=== PATIENT | male | born 2000 | race Caucasian/White ===

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

== ENCOUNTER 2021-06-08 15:35 | Emergency (ER) | payer MEDICAID, SELFPAY ==
[2021-06-08 15:37] VITALS: BP 176/100; PULSE 66; RESP 16; TEMP 37.2; O2SAT 99
[2021-06-08] MEDS: Fluorescein STRIPS 100/BOX 1 MG (16:09)
[2021-06-08] MEDS: Tetracaine 0.5% 4 ML BTL (16:09)
--- NOTE | 2021-06-08 16:14 | ED.GENADUL_ITS ---
Discharge Plan Disposition Patient Disposition: HOME Condition: Improving Discharge Details Clinical Impression: Foreign body in cornea, left eye, initial encounter Primary Care Provider: Wilmer Sherman ED Provider: Sarabjit Dewey Home Meds and New Rx's Prescriptions: No Action No Known Home Meds 0RF Discharge Instructions Additional Instructions: Please go directly to [facility] eye care for further evaluation of your left eye corneal foreign body. You have been discharged with erythromycin ointment. Please hold this medicine until further directions per the optometry personnel. Medical Decision Making 20-year-old male presents with foreign body sensation that developed last night after work. No change to vision, he is otherwise been well. He has a foreign body located above the axis of vision a 12 position of the left eye. I was unable to remove with sweeping with a cotton swab and with a 30-gauge beveled needle. Local optometry office was contacted, and patient referred for urgent evaluation for foreign body removal. HPI General Mode of arrival: ambulatory . Date/Time Provider Initiated Documentation: 06/08/21 15:44 . Limitations to Documentation: no limitations . Information obtained by: patient . History of Present Illness 20 year old M presents to the emergency department with the chief complaint of Left eye irritation, pain, described as moderate, Quality is described as dull and constant, and is localized to the eyes and left. Patient reports no radiation. Patient started experiencing this hour(s) and it has been constant. improves with No relieving factors improve symptom(s), Other factors that worsen symptoms (Bright light) . Patient notes denies headaches. Patient did receive the following treatments prior to arrival, none Related Data Home Medications Medication Instructions Recorded Confirmed Unknown [No Known Home Meds] 09/16/19 06/08/21 Allergies Allergy/AdvReac Type Severity Reaction Status Date / Time No Known Allergies Allergy Unverified 06/08/21 15:41 General Stated Complaint: EyeProblem PORFIRIO: 4 Review of Systems Narrative: 6 systems reviewed and otherwise negative PFSH All Active Problems (Updated 06/08/21 @ 16:27 by Sarabjit Dewey MD) Foreign body in cornea, left eye, initial encounter (Acute) Medical History No active medical problems Social History Smoking/Tobacco Use Status: Never Smoking risk assessment performed?: Yes Alcohol Intake: never Drug use: Never Substance use type: does not use Do you feel safe at home: Yes Do you feel safe in your relationship?: Yes Exam Narrative Exam Narrative: GEN: awake, alert, oriented 3. Pleasant, well groomed, interactive. HEAD: Normocephalic, atraumatic ENT: Mucous membranes moist, oropharynx unremarkable, External ear exam unremarkable EYES: PERRL, EOMI, left conjunctival injection. Foreign body is present left eye superior to the axis of vision in the 12 o'clock position. Negative Karishma sign. NECK: Full ROM, no JOSE, no menigismus CHEST/RESP: No respiratory distress Neuro: Grossly normal neurologic exam, conversant, interactive. Psych: Speech fluent, thoughts congruent, affect normal Course Vital Signs Vital signs: Vital Signs Temperature 37.2 C 06/08/21 15:37 Pulse 66 06/08/21 15:37 Respiratory Rate 16 06/08/21 15:37 Blood Pressure 176/100 H 06/08/21 15:37 Pulse Oximetry 99 06/08/21 15:37 Temperature 37.2 C 06/08/21 15:37 Temperature Source Temporal Artery Scan 06/08/21 15:37 Pulse 66 06/08/21 15:37 Respiratory Rate 16 06/08/21 15:37 Respiratory Effort Non-Labored 06/08/21 15:40 Blood Pressure 176/100 H 06/08/21 15:37 Blood Pressure Position Sitting 06/08/21 15:37 Pulse Oximetry 99 06/08/21 15:37 Oxygen Delivery Method Room Air 06/08/21 15:37 Oxygen Flow Rate 0 06/08/21 15:37 Pain Level 5 06/08/21 15:37
[2021-06-08] MEDS: Erythromycin Ophth Oint 3.5 GM TUBE OP (16:34)
[2021-06-08] MEDS: Fluorescein STRIPS 100/BOX 1 MG OP (16:35)
== END 2021-06-08 16:33 | disposition home or self-care (01) ==
PROVIDERS: Emergency Provider Emergency Medicine; PCP Family Medicine
DX: T15.02XA Foreign body in cornea, left eye, initial encounter (principal); X58.XXXA Exposure to other specified factors, initial encounter
CPT/HCPCS: 99283

== ENCOUNTER 2021-08-30 18:16 | Emergency (ER) | payer MEDICAID, SELFPAY ==
[2021-08-30 18:44] VITALS: BP 147/90; PULSE 70; RESP 18; TEMP 37.2
--- NOTE | 2021-08-30 18:59 | PDOC.ERCMPRO ---
- If Service Date Differs Date of service: 08/30/21 Time of Service: 18:59 Care Management Progress Note Pt screened negative for substance use and mental health disorders. Pt notes he recently quit tobacco and was affirmed for positive choices.
[2021-08-30 19:18] VITALS: RESP 14
[2021-08-30 19:26] VITALS: BP 141/94; PULSE 79; RESP 14; TEMP 36.4; O2SAT 97
--- NOTE | 2021-08-30 19:30 | DI.RAD_ITS ---
Exam(s) XR TIB/FIB RT EXAM: XR TIB/FIB RT CLINICAL HISTORY: Jumped off a bridge,pain. TECHNIQUE: 2D digital imaging was performed. COMPARISON: No exams were available for comparison FINDINGS: Two views: No evidence of fracture. No radiopaque foreign body. No osseous lesions. IMPRESSION: No fracture. DATA REPOSITORY: RADIATION DOSE DELIVERED:
--- NOTE | 2021-08-30 19:30 | DI.RAD_ITS ---
Exam(s) XR TIB/FIB LT EXAM: XR TIB/FIB LT CLINICAL HISTORY: Jumped off a bridge,pain. TECHNIQUE: 2D digital imaging was performed. COMPARISON: CR,XR XR TIB/FIB RT from 08/30/2021 FINDINGS: Two views No fracture nor dislocation. Bone density normal. No osseous lesions. IMPRESSION: No significant osseous findings DATA REPOSITORY: RADIATION DOSE DELIVERED:
--- NOTE | 2021-08-30 19:30 | DI.RAD_ITS ---
Exam(s) XR KNEE LT 4V+ EXAM: XR KNEE LT 4V+ CLINICAL HISTORY: Jumped off a bridge,pain. TECHNIQUE: 2D digital imaging was performed. COMPARISON: No exams were available for comparison FINDINGS: Four views: There is no evidence of fracture nor prominent joint effusion. There is a mild amount of increased j oint fluid. No degenerative changes. Incidentally noted is an eccentric benign-appearing bone lesion in the distal femoral metaphysis. Th is is probably a benign fibrous cortical defect-nonossifying fibroma. IMPRESSION: No acute osseous findings. 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 DATA REPOSITORY: RADIATION DOSE DELIVERED:
--- NOTE | 2021-08-30 19:30 | DI.RAD_ITS ---
Exam(s) XR ANKLE RT COMPLETE EXAM: XR ANKLE RT COMPLETE CLINICAL HISTORY: Jumped off a bridge,pain. TECHNIQUE: 2D digital imaging was performed. COMPARISON: No exams were available for comparison FINDINGS: 3 views There is soft tissue swelling but no fracture or widening of the ankle mortise. Talar dome unremarka ble. Bone density normal. No osseous lesions IMPRESSION: No fracture. DATA REPOSITORY: RADIATION DOSE DELIVERED:
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
--- NOTE | 2021-08-30 21:18 | DI.VRAD_ITS ---
PROCEDURE INFORMATION: Exam: XR Right Calcaneus Exam date and time: 08/30/2021 8:34 PM Age: 20 years old Clinical indication: Injury or trauma; Other: Jumped off bridge; Blunt trauma; Heel; Right; Injury date: 08/30/21 TECHNIQUE: Imaging protocol: Radiologic exam of the Right calcaneus. Views: 2 or more views. COMPARISON: CR XR ANKLE RT COMPLETE 08/30/2021 8:33 PM FINDINGS: Bones/joints: Osseous anatomic alignment is well preserved. No acutely displaced fracture or dislocation. Joint spaces are well preserved. Soft tissues: No significant soft tissue swelling. IMPRESSION: No acute findings. Dictated and Authenticated by: Orville Sigala MD. Ordering:AISHA Zuluaga MD
--- NOTE | 2021-08-30 21:18 | DI.VRAD_ITS ---
PROCEDURE INFORMATION: Exam: XR Right Tibia and Fibula Exam date and time: 08/30/2021 8:33 PM Age: 20 years old Clinical indication: Injury or trauma; Other: Jumped off bridge; Blunt trauma; Lower leg; Right; Injury date: 08/30/21 TECHNIQUE: Imaging protocol: Radiologic exam of the Right tibia and fibula. Views: 2 views. COMPARISON: No relevant prior studies available. FINDINGS: Bones/joints: Osseous anatomic alignment is well preserved. No acutely displaced fracture or dislocation. Joint spaces are well preserved. Soft tissues: No significant soft tissue swelling. IMPRESSION: No acute findings. Dictated and Authenticated by: Orville Sigala MD. Ordering:AISHA Zuluaga MD
[2021-08-30 23:18] VITALS: BP 144/62; PULSE 72; RESP 15; TEMP 37.5; O2SAT 95
== END 2021-08-30 23:33 | disposition home or self-care (01) ==
PROVIDERS: Emergency Provider Physician Assistant; PCP Family Medicine
DX: S80.212A Abrasion, left knee, initial encounter (principal); G89.11 Acute pain due to trauma; M79.661 Pain in right lower leg; R55 Syncope and collapse; W17.89XA Other fall from one level to another, initial encounter; W22.09XA Striking against other stationary object, initial encounter; Y93.39 Activity, other involving climbing, rappelling and jumping off
CPT/HCPCS: 99284; 73564; 73590; 73610; 73650; 99282